=== PATIENT | male | born 1950 | race Caucasian/White ===

== ENCOUNTER 2017-04-25 16:37 | Observation (INO) ==
[2017-04-25] MEDS ORDERED: Ondansetron ODT 4 MG TAB.RAPDIS SL ONE (17:02)
[2017-04-25 17:37] LABS: BUN/Creatinine Ratio 14 (6-26); Blood Urea Nitrogen 17 mg/dL (8-26); Calcium 9.5 mg/dL (8.6-10.8); Carbon Dioxide 28 mEq/L (19-29); Chloride 102 mEq/L (98-109); Glucose 189 mg/dL (70-99); Osmolality,Calculated 303 (280-300); Potassium 3.3 mEq/L (3.5-4.5); Sodium 143 mEq/L (136-145); eGFR For African Americans > 60 (> 60); eGFR For Non-African Americans 59 (> 60)
--- NOTE | 2017-04-25 18:17 | Emergency Department Note ---
Disposition Clinical Impression: Hypoglycemia associated with type 2 diabetes mellitus Disposition: Admitted As Inpatient Condition: Fair General Adult HPI - General Chief complaint: ED Altered Mental Status Stated complaint: low blood sugar, disoriented Time Seen by Provider: 04/25/17 16:47 Source: patient, EMS Limitations: no limitations Nursing Notes Reviewed: Yes Vital Signs Reviewed: Yes - History of Present Illness HPI Narrative: Mr. Montgomery, a 66yo male, is from home by EMS for evaluation of hypoglycemia. Patient is a type II diabetic on both glipizide extended release twice a day as well as Lantus 35 units twice a day. He was experiencing diaphoresis, shakiness , slight slowing of thought and squad was called. He is a poorly controlled type II diabetic who does not check his blood glucose daily, weekly, or even monthly. Last hemoglobin A1c was 6.4. PMH: Diabetes type 2 on oral and insulin antihyperglycemic, hypertension, hyperlipidemia, morbid obesity, Pain Scale: 5 - Related Data Home Medications Medication Instructions Recorded Confirmed Fenofibrate [Lofibra] 160 mg PO DAILY 01/12/15 04/25/17 GlipiZIDE XL (24 HR) [Glucotrol XL] 10 mg PO BID 01/12/15 04/25/17 Hydrocodone/Acetaminophen [[place] 1 tab PO Q8H PRN 01/12/15 04/25/17 5-325 Tablet] Insulin Glargine,Hum.rec.anlog 35 unit SQ BID 01/12/15 04/25/17 [Lantus Solostar] Lisinopril/Hydrochlorothiazide 1 each PO BID 01/12/15 04/25/17 [Zestoretic 10-12.5 mg Tablet] Metoprolol [Lopressor] 25 mg PO BID 01/12/15 04/25/17 Pioglitazone [Actos] 45 mg PO DAILY 01/12/15 04/25/17 Ranitidine HCl [Zantac] 150 mg PO BID 01/12/15 04/25/17 Sertraline [Zoloft] 150 mg PO DAILY 01/12/15 04/25/17 Gabapentin [Neurontin] 300 mg PO HS 04/25/17 04/25/17 Previous Rx's Medication Instructions Recorded Cyclobenzaprine [Flexeril] 10 mg PO Q8H PRN #15 tablet 09/18/15 Allergies Allergy/AdvReac Type Severity Reaction Status Date / Time No Known Allergies Allergy Unverified 01/07/15 09:56 All systems ED: reviewed and negative except as stated. Constitutional: Denies: chills, weakness Cardiovascular: Denies: chest pain, palpitations Respiratory: Denies: cough, dyspnea Gastrointestinal: Denies: abdominal pain, nausea, vomiting Genitourinary: Denies: urgency, dysuria Past Medical History - Past Medical History Attestation: Yes The following information was validated with the patient. Source: patient Medical history: Reports: arthritis, diabetes, GERD, hyperlipidemia, hypertension, kidney stones Surgical history: Reports: cholecystectomy Psychiatric history: Reports: depression - Social History Smoking Status: Former smoker Smokeless Tobacco Status: Yes Alcohol use: Reports: none Drug use: Reports: none Physical Exam - General Limitations: no limitations, other (morbidly obese ) General appearance: alert, in no apparent distress - Head Head exam: atraumatic, normocephalic - Eye Eye exam: Present: normal appearance - ENT ENT exam: normal exam, normal oropharynx - Neck Neck exam: Present: normal inspection - Chest Chest inspection: Present: normal inspection - Respiratory Respiratory exam: Present: normal lung sounds bilaterally. Absent: respiratory distress - Cardiovascular Cardiovascular exam: Present: regular rate, normal rhythm - Abdominal Exam Abdominal exam: Present: soft, Non-Tender - Expanded Lower Extremity Exam Lower leg exam: Present: swelling Neurovascular/Tendon exam: Present: normal capillary refill - Neurological Exam Neurological exam: Present: alert, oriented X3 - Psychiatric Psychiatric exam: Present: normal affect, normal mood - Skin Skin exam: Present: warm, dry Course Course Narrative: Patient is a poorly controlled type II diabetic on both oral and insulin a tavern by symptoms. Blood glucose at home was in the 40s per EMS. After 2 tubes of oral glucose in route, his glucose on arrival is in the 140s to 150s. Serum hematology glucose is 189. Provided patient with complex carbs and protein so that he does not slide into hypoglycemia. Patient took his glipizide at approximately 11 AM. Repeat POC glucose is 233. I discussed the patient my concern of his glipizide extended release in the need to continue eating complex carbohydrates with finger stick glucose checks every 2 hours should he be discharged home. Patient is honest and plainly states that he would be noncompliant with this. Clinically, my concern is that he become hypoglycemic during the night. Patient's takes trazodone at night to sleep and would not be aware or awake to help the patient should he go hypoglycemic again. Patient is agreeable to admission for continued evaluation and monitoring. I discussed the patient with the admitting hospitalist, Dr. Barber, who agrees to accept the patient for continued evaluation and management. Assessment: Hypoglycemia on sulfonylurea Vital Signs Temperature 98.4 F 04/25/17 16:40 Pulse Rate 81 04/25/17 16:40 Respiratory Rate 16 04/25/17 16:40 Blood Pressure 137/113 04/25/17 16:40 O2 Sat by Pulse Oximetry 98 04/25/17 16:40 Temperature 98.4 F 04/25/17 19:38 Pulse Rate 95 04/25/17 19:38 Respiratory Rate 16 04/25/17 19:38 Blood Pressure 151/89 04/25/17 19:38 O2 Sat by Pulse Oximetry 94 04/25/17 19:38 Oxygen Delivery Oxygen Delivery Room Air Medical Decision Making - Lab Data Result diagrams: 04/25/17 17:20 Lab Results 04/25/17 Range/Units 17:20 Sodium 143 (136-145) mEq/L Potassium 3.3 L (3.5-4.5) mEq/L Chloride 102 (98-109) mEq/L Carbon Dioxide 28 (19-29) mEq/L BUN 17 (8-26) mg/dL Creatinine 1.23 (0.72-1.25) mg/dL Est GFR ( Amer) > 60 (> 60) Est GFR (Non-Af Amer) 59 L (> 60) BUN/Creatinine Ratio 14 (6-26) Glucose 189 H (70-99) mg/dL Calculated Osmolality 303 H (280-300) Calcium 9.5 (8.6-10.8) mg/dL Attestation Statement - Attestation Attestation: I examined this patient and my medical decision-making was reviewed with the Resident Physician. I agree with the documented findings, disposition and treatment plan as described except to the extent set forth below. 66-year-old male brought to the ED due to hypoglycemia. He has a history of type 2 diabetes but currently on insulin, Amaryl and glipizide. He took his usual dose of medications today later than usual. He claims he did eat a normal meal today. He was found confused and diaphoretic and when EMS arrived his glucose was 40. He was given oral glucose with improvement. He admits to noncompliance with diet and oftentimes with medications. Denies any recent illnesses. No vomiting or diarrhea. No recent change in medication Morbidly obese male in no apparent distress. He is talkative and interactive. He is complaining about the food that was provided for him. Oropharynx is clear mucous members moist. Neck is supple. Chest clear to auscultation bilaterally. Cardiac exam regular without rubs or gallops. Abdomen obese, soft, nontender. Extremities the bilateral edema. Renal function was preserved. Glucose remained stable but he was adamant he was not going to check his glucose anymore today and could not reassurance using when the heat anything further. He was on both long-acting insulin and long-acting glipizide making this plan of action Dangerous for him. He was however, in agreement for admission. Hospitalist agreed to admit with frequent Accu-Cheks and, hopefully, effective counseling
[2017-04-25] MEDS ORDERED: Potassium Chloride Elixir 20 MEQ/15 ML UDC PO ONE (20:32)
[2017-04-25] MEDS ORDERED: *HR* HYDROcodone/Acet 5/325 mg TABLET PO PRN (20:33)
--- NOTE | 2017-04-25 20:39 | Internal Med History&Physical ---
Date of Encounter: 04/25/17 Time of Encounter: 20:34 Assessment and Plan (1) Hypertension Current visit: No Status: Acute Continue home medicines. Qualifiers: Qualified Code(s): I10 - Essential (primary) hypertension (2) Hypoglycemia associated with type 2 diabetes mellitus Current visit: Yes Status: Acute Patient with type II diabetes mellitus on Lantos 35 units twice-daily and glipizide 10 mg twice daily presents with a hypoglycemic episode. His A1C is 6.4. He very rarely gets hypoglycemic episodes. No obvious source of infection. no recent increase in insulin dose or oral hypoglycemics. no change in dietary habits. In fact he has gained about 15 pounds in the past few month. Will check in blood sugar Q2 hours for now. Check A1 C. Patient does not check sugars at home. Advised to check sugars before meals. Decrease lantus dose on discharge Internal Medicine - H&P: HPI Chief complaint: low sugar History of present illness: Mr. Montgomery is a 66 year old male with history of type II diabetes mellitus on lantus 35 units twice daily and glipizide 10 milligrams twice daily presents the emergency room today with an episode of low blood sugar. Approximately 4 PM patient started becoming sweaty confused unconscious shaky. Sugars were checked by paramedics was found to be 40. He had received glucose products with normalization of blood sugar. He rarely gets low blood sugars. Last time he recalls getting hypoglycemic events were over 10 years ago. Patient denies any fever chills cough expectoration diarrhea or urinary symptoms. No recent changes in insulin dosage or oral hypoglycemic. No change in dietary habits Past Med Surg Social Fam HX - Past Medical History Medical history: arthritis, diabetes, GERD, hyperlipidemia, hypertension, kidney stones Psychiatric history: depression - Past Surgical History Surgical History: cholecystectomy - Social History Smoking Status: Former smoker Smokeless Tobacco Status: Yes Alcohol use: none Drug use: none - Family History Son Adopted: No Family Member Ethnicity: Non- Living Status: Still Living Hx Family Respiratory Disorders: Yes Sister Living Status: Still Living Internal Medicine - H&P: Meds Fenofibrate [Lofibra] 160 mg PO DAILY 01/12/15 [History] GlipiZIDE XL (24 HR) [Glucotrol XL] 10 mg PO BID 01/12/15 [History] Hydrocodone/Acetaminophen [[place] 5-325 Tablet] 1 tab PO Q8H PRN 01/12/15 [ History] Insulin Glargine,Hum.rec.anlog [Lantus Solostar] 35 unit SQ BID 01/12/15 [ History] Lisinopril/Hydrochlorothiazide [Zestoretic 10-12.5 mg Tablet] 1 each PO BID [History] Metoprolol [Lopressor] 25 mg PO BID 01/12/15 [History] Pioglitazone [Actos] 45 mg PO DAILY 01/12/15 [History] Ranitidine HCl [Zantac] 150 mg PO BID 01/12/15 [History] Sertraline [Zoloft] 150 mg PO DAILY 01/12/15 [History] Cyclobenzaprine [Flexeril] 10 mg PO Q8H PRN #15 tablet 09/18/15 [Rx] Gabapentin [Neurontin] 300 mg PO HS 04/25/17 [History] 3 Allergy/AdvReac Type Severity Reaction Status Date / Time No Known Allergies Allergy Unverified 01/07/15 09:56 All Systems PM: A 10-system review of systems was performed and is negative for pertinent findings except as documented above in the HPI. Review of systems: 10 point review of systems is negative except for HPI - Constitutional Vitals: Temp Pulse Resp BP Pulse Ox 98.4 F 95 16 151/89 94 04/25/17 19:38 04/25/17 19:38 04/25/17 19:38 04/25/17 19:38 04/25/17 19:38 Exam: Gen.: patient is alert oriented times 3 not in distress cardiac: normal S1 S2 no additional sounds are murmurs chest: clear to auscultation abdomen: soft nontender nondistended lower extremity lax calf muscles no swelling Neuro: no focal deficits Internal Med - H&P Results - Labs CBC & Chem 7: 04/25/17 17:20
[2017-04-25] MEDS ORDERED: Famotidine 20 MG TABLET PO SCH (21:00)
[2017-04-25] MEDS ORDERED: Gabapentin 300 MG CAPSULE PO SCH (21:00)
[2017-04-25] MEDS: Famotidine 20 MG TABLET PO SCH (21:18)
[2017-04-25] MEDS: *HR* Heparin 5,000 UNIT/ML VIAL SQ SCH (21:19)
[2017-04-26] MEDS: *HR* Heparin 5,000 UNIT/ML VIAL SQ SCH (05:40)
[2017-04-26 06:08] LABS: Eosinophils % 0.3 %; Hematocrit 34.5 % (37.5-50.1); Hemoglobin 11.7 g/dL (12.9-16.9); Immature Granulocytes % 1.7 % (0-4); Immature Platelets 10.9 % (1.1-6.1); Lymphocytes # 1.1 K/mcL (0.6-4.6); Lymphocytes % 31.4 %; Mean Corpuscular HGB Conc 33.9 g/dL (31.6-35.5); Mean Corpuscular Hemoglobin 30.8 pg (28.0-33.3); Mean Corpuscular Volume 90.8 fL (83.0-100.0); Mean Platelet Volume 11.6 fL (9.4-12.4); Monocytes # 0.6 K/mcL (0.0-1.3); Monocytes % 16.5 %; Neutrophils # 1.8 K/mcL (1.6-8.9); Platelet Count 141 K/mcL (140-400); Red Cell Distribution Width 13.2 % (11.5-14.5); Segmented Neutrophils % 50.1 %
[2017-04-26 06:16] LABS: Hemoglobin A1C 5.8 %
[2017-04-26 06:22] LABS: BUN/Creatinine Ratio 16 (6-26); Blood Urea Nitrogen 18 mg/dL (8-26); C-Reactive Protein 5 mg/L (Less than 5); Calcium 9.6 mg/dL (8.6-10.8); Carbon Dioxide 32 mEq/L (19-29); Chloride 106 mEq/L (98-109); Glucose 70 mg/dL (70-99); Magnesium 2.2 mg/dL (1.6-2.6); Osmolality,Calculated 300 (280-300); Potassium 3.6 mEq/L (3.5-4.5); Sodium 145 mEq/L (136-145); eGFR For African Americans > 60 (> 60); eGFR For Non-African Americans > 60 (> 60)
[2017-04-26] MEDS ORDERED: Fenofibrate 54 MG TABLET PO SCH (09:00)
[2017-04-26] MEDS ORDERED: Insulin DETEMIR 100 UNIT/ML X5UNITS SQ SCH (09:00)
[2017-04-26] MEDS: Famotidine 20 MG TABLET PO SCH (09:16)
[2017-04-26 12:07] VITALS: BP 152/85
--- NOTE | 2017-04-26 13:34 | Discharge Summary ---
Date of Encounter: 04/26/17 Time of Encounter: 10:45 - Discharge Diagnosis (1) Hypoglycemia associated with type 2 diabetes mellitus Priority: Primary Status: Acute (2) Hypertension Priority: Secondary Status: Acute Qualifiers: Hypertension type: essential hypertension Qualified Code(s): I10 - Essential (primary) hypertension - Discharge Medications Prescriptions: Insulin Glargine,Hum.rec.anlog [Lantus Solostar] 20 unit SQ DAILY #1 insuln.pen Home Medications: Fenofibrate [Lofibra] 160 mg PO DAILY 01/12/15 [History] Hydrocodone/Acetaminophen [[place] 5-325 Tablet] 1 tab PO Q8H PRN 01/12/15 [ History] Lisinopril/Hydrochlorothiazide [Zestoretic 10-12.5 mg Tablet] 1 each PO BID [History] Metoprolol [Lopressor] 25 mg PO BID 01/12/15 [History] Ranitidine HCl [Zantac] 150 mg PO BID 01/12/15 [History] Sertraline [Zoloft] 150 mg PO DAILY 01/12/15 [History] Cyclobenzaprine [Flexeril] 10 mg PO Q8H PRN #15 tablet 09/18/15 [Rx] Gabapentin [Neurontin] 300 mg PO HS 04/25/17 [History] Insulin Glargine,Hum.rec.anlog [Lantus Solostar] 20 unit SQ DAILY #1 insuln.pen 04/26/17 [Rx] Allergies/Adverse Reactions: 3 Allergy/AdvReac Type Severity Reaction Status Date / Time No Known Allergies Allergy Unverified 01/07/15 09:56 Date of admission: 04/25/17 18:47 Primary care physician: Abbie Sapp Discharging clinician: Deepti Mclain Anticipated date of discharge: 04/26/17 - Patient Status Disposition: Home, Self-Care Condition: Good Functional capacity at discharge: independent ambulation Overall status at discharge: patient is progressing back to baseline - Discharge Instructions Instructions: Insulin Glargine (Injection), Diabetic Hypoglycemia (DC), Diabetes Mellitus Type 2 in Adults (DC), Chronic Hypertension (DC) Follow Up With: Reed Doyle DO [Primary Care Provider] - 05/02/17 1:30 pm () Additional Instructions: Take Lantus 20 units subcutaneous at bedtime if blood sugars greater than 150. Please check your blood sugar first thing in the morning when you wake up and 3 times a day before meals. If your blood sugars remain greater than 200 consistently, call your primary care doctor to make adjustments. If your blood sugars go greater than 400 please come to the ER. - Diet and Activity Activity: increase activity as tolerated Diet: diabetic diet, low salt diet Hospital course: Mr. Montgomery is a 66 year old male patient with a history of diabetes mellitus, hypertension who presented to the ER with complaints of increased confusion and excessive sweating. His blood sugars have been checked at his home and was found to be in the 40s. Patient takes Lantus 35 units twice daily. He denies taking any extra doses of insulin. Patient is also on Actos and glipizide. He has not been checking his blood sugars regularly at home as he has been on the same amount of insulin for at least 2 years now. His blood sugars were closely monitored and his insulin was held. His blood sugars have since improved. He has not received any insulin here so far and his blood sugars are ranging between 70 to and 200 this morning. His A1c level was 5.8%. His symptoms were most likely due to his insulin requirements decreasing given his well controlled blood sugars. As such I recommend stopping his oral anti-glycemic agents and also decreasing his Lantus dosage. At this time I would recommend that he take 20 units of Lantus once a day and follow his blood sugars closely. He will follow up with his primary care provider for further management. I called his primary care provider and explained the patient's condition and the plan that remained. He is in agreement with current plan and will follow up with him as outpatient. Patient is advised to call his primary care provider if his blood sugars are consistently greater than 200 to make adjustments to his insulin regimen. - Time Spent with Patient Total time spent providing and/or coordinating discharge services: Greater than 30 minutes (35 min) - Constitutional Vitals: Temp Pulse Resp BP Pulse Ox 98.3 F 81 16 152/85 93 04/26/17 12:06 04/26/17 12:06 04/26/17 12:06 04/26/17 12:06 04/26/17 12:06 General appearance: Present: cooperative, A&O X 3, answers questions appropriately - Neck Neck exam general surgery: Present: supple, trachea midline. Absent: lymphadenopathy - Respiratory Respiratory exam: Present: CTAB. Absent: accessory muscle use, rales, rhonchi, wheezes - Cardiovascular Cardiovascular exam: Present: RRR, +S1, +S2. Absent: diastolic murmur, gallop, rubs, systolic murmur - GI/Abdominal GI/Abdominal exam: Present: normal bowel sounds, soft, no peritoneal signs. Absent: distended, tenderness - Extremities Exam Extremities exam: Present: warm, radial pulses palpable and symmetrical. Absent : calf tenderness, cyanotic, pedal edema - Neurological Exam Neurological exam: Present: alert, oriented X3, no focal deficits. Absent: facial droop, speech deficit - Skin Skin exam: Present: dry, intact
== END 2017-04-26 14:45 | disposition home or self-care (01) ==
LOC: 3BNU 16:37 → EMEROO 16:37 → SUATTDRO 18:47 → 3BNU 19:21
PROVIDERS: ADMIT Hospitalist; ATTEND Internal Medicine

== ENCOUNTER 2019-11-16 14:28 | Inpatient (IN) ==
[2019-11-16] MEDS ORDERED: 0.9 % Sodium Chloride 1,000 ML IVC ONE (14:48)
[2019-11-16 14:57] LABS: Hemoglobin 13.2 g/dL (12.9-16.9)
[2019-11-16 14:59] LABS: Hematocrit 39.6 % (37.5-50.1); Immature Granulocytes % 1.2 % (0-4); Immature Platelets 17.4 % (1.1-6.1); Lymphocytes # 0.6 K/mcL (0.6-4.6); Lymphocytes % 8.1 %; Mean Corpuscular HGB Conc 33.3 g/dL (31.6-35.5); Mean Corpuscular Hemoglobin 30.1 pg (28.0-33.3); Mean Corpuscular Volume 90.4 fL (83.0-100.0); Mean Platelet Volume 13.2 fL (9.4-12.4); Monocytes # 0.1 K/mcL (0.0-1.3); Monocytes % 1.5 %; Neutrophils # 6.5 K/mcL (1.6-8.9); Platelet Count 156 K/mcL (140-400); Red Blood Count 4.38 M/mcL (4.19-5.50); Red Cell Distribution Width 14.1 % (11.5-14.5); Segmented Neutrophils % 89.2 %; White Blood Count 7.3 K/mcL (4.3-11.1)
[2019-11-16 15:18] LABS: BUN/Creatinine Ratio 12 (6-26); Blood Urea Nitrogen 23 mg/dL (8-23); Calcium 9.9 mg/dL (8.6-10.3); Carbon Dioxide 24 mEq/L (23-29); Chloride 101 mEq/L (98-107); Glucose 325 mg/dL (70-105); Osmolality,Calculated 302 (280-300); Potassium 3.8 mEq/L (3.5-5.1); Sodium 138 mEq/L (136-145); Troponin I < 0.03 ng/mL (< 0.04); eGFR For African Americans 42 (> 60); eGFR For Non-African Americans 35 (> 60)
[2019-11-16] MEDS ORDERED: Ondansetron 4 MG/2 ML VIAL IVP ONE (16:49)
[2019-11-16] MEDS ORDERED: 0.9 % Sodium Chloride 1,000 ML ONE (17:04)
[2019-11-16] MEDS ORDERED: Aspirin 325 MG TABLET PO ONE (18:10)
[2019-11-16] MEDS ORDERED: *HR* OxyCODONE Immed Rel 5 MG TABLET PO PRN (19:21)
[2019-11-16] MEDS ORDERED: Naloxone 0.4 MG/ML INJ IVP PRN ×2 (19:21→19:44)
[2019-11-16] MEDS ORDERED: Nitroglycerin 0.4 MG TAB.SUBL SL PRN (20:51)
[2019-11-16] MEDS: Ringers Solution, Lactated 1,000 ML IVC SCH (20:53)
[2019-11-16] MEDS ORDERED: *HR* Heparin 5,000 UNIT/ML VIAL SQ SCH (21:00)
[2019-11-17] MEDS: Insulin LISPRO 300 UNITS/3 ML VIAL SQ SCH ×5 (01:01→20:40)
[2019-11-17 02:24] LABS: Hematocrit 32.5 % (37.5-50.1); Lymphocytes # 0.9 K/mcL (0.6-4.6); Lymphocytes % 11.3 %; Mean Corpuscular HGB Conc 32.9 g/dL (31.6-35.5); Mean Corpuscular Hemoglobin 29.5 pg (28.0-33.3); Mean Corpuscular Volume 89.5 fL (83.0-100.0); Mean Platelet Volume 12.4 fL (9.4-12.4); Monocytes # 0.5 K/mcL (0.0-1.3); Monocytes % 6.4 %; Neutrophils # 6.8 K/mcL (1.6-8.9); Platelet Count 141 K/mcL (140-400); Red Blood Count 3.63 M/mcL (4.19-5.50); Red Cell Distribution Width 14.2 % (11.5-14.5); Segmented Neutrophils % 81.3 %; White Blood Count 8.3 K/mcL (4.3-11.1)
[2019-11-17 02:29] LABS: Hemoglobin 10.7 g/dL (12.9-16.9)
[2019-11-17 02:38] LABS: Calcium 8.9 mg/dL (8.6-10.3); Chol/HDL Ratio 3.7 (0-4.9); Potassium 3.5 mEq/L (3.5-5.1)
[2019-11-17 02:51] LABS: Thyroid Stimulating Hormone 1.552 mcIU/mL (0.340-5.600)
[2019-11-17 04:57] LABS: Estimated Average Glucose 169 mg/dl
[2019-11-17] MEDS: Aspirin 81 MG TAB.CHEW PO SCH (08:35)
[2019-11-17] MEDS: Fenofibrate 54 MG TABLET PO SCH (08:35)
[2019-11-17] MEDS: Ringers Solution, Lactated 1,000 ML IVC SCH ×2 (12:33→20:39)
[2019-11-17] MEDS: Acetaminophen 325 MG TABLET PO PRN (16:01)
[2019-11-18] MEDS: Insulin LISPRO 300 UNITS/3 ML VIAL SQ SCH ×3 (05:23→17:19)
[2019-11-18] MEDS ORDERED: Regadenoson 0.4 MG/5 ML SYRINGE IVP ONE (06:35)
[2019-11-18] MEDS: Aspirin 81 MG TAB.CHEW PO SCH (08:18)
[2019-11-18] MEDS: Fenofibrate 54 MG TABLET PO SCH (08:18)
[2019-11-18] MEDS: Acetaminophen 325 MG TABLET PO PRN (08:22)
[2019-11-18 09:06] LABS: Basophils % 0.3 %; Eosinophils % 0.3 %; Hematocrit 29.5 % (37.5-50.1); Hemoglobin 9.7 g/dL (12.9-16.9); Immature Granulocytes % 1.7 % (0-4); Lymphocytes # 0.8 K/mcL (0.6-4.6); Lymphocytes % 27.8 %; Mean Corpuscular HGB Conc 32.9 g/dL (31.6-35.5); Mean Corpuscular Hemoglobin 30.1 pg (28.0-33.3); Mean Corpuscular Volume 91.6 fL (83.0-100.0); Mean Platelet Volume 12.8 fL (9.4-12.4); Monocytes # 0.2 K/mcL (0.0-1.3); Monocytes % 8.3 %; Neutrophils # 1.8 K/mcL (1.6-8.9); Platelet Count 103 K/mcL (140-400); Red Blood Count 3.22 M/mcL (4.19-5.50); Red Cell Distribution Width 13.7 % (11.5-14.5); Segmented Neutrophils % 61.6 %
[2019-11-18 09:10] LABS: White Blood Count 2.9 K/mcL (4.3-11.1)
[2019-11-18 09:25] LABS: BUN/Creatinine Ratio 21 (6-26); Blood Urea Nitrogen 20 mg/dL (8-23); Calcium 8.5 mg/dL (8.6-10.3); Carbon Dioxide 33 mEq/L (23-29); Chloride 106 mEq/L (98-107); Glucose 141 mg/dL (70-105); Magnesium 1.9 mg/dL (1.6-2.6); Osmolality,Calculated 297 (280-300); Potassium 3.5 mEq/L (3.5-5.1); Sodium 141 mEq/L (136-145); eGFR For African Americans > 60 (> 60); eGFR For Non-African Americans > 60 (> 60)
[2019-11-18] MEDS: Ringers Solution, Lactated 1,000 ML IVC SCH (11:21)
[2019-11-18] MEDS ORDERED: Magnesium Oxide 400 MG TABLET PO ONE (18:37)
[2019-11-18] MEDS ORDERED: Potassium Chloride Elixir 20 MEQ/15 ML UDC PO ONE (18:38)
[2019-11-19] MEDS: Insulin LISPRO 300 UNITS/3 ML VIAL SQ SCH ×5 (01:03→20:01)
[2019-11-19] MEDS ORDERED: Regadenoson 0.4 MG/5 ML SYRINGE IVP ONE (06:06)
[2019-11-19 06:12] LABS: Eosinophils % 0.4 %; Hemoglobin 10.2 g/dL (12.9-16.9); Immature Granulocytes % 1.6 % (0-4); Lymphocytes % 30.3 %
[2019-11-19 06:14] LABS: Hematocrit 29.7 % (37.5-50.1); Immature Platelets 8.6 % (1.1-6.1); Lymphocytes # 0.7 K/mcL (0.6-4.6); Mean Corpuscular HGB Conc 34.3 g/dL (31.6-35.5); Mean Corpuscular Hemoglobin 30.4 pg (28.0-33.3); Mean Corpuscular Volume 88.7 fL (83.0-100.0); Mean Platelet Volume 13.1 fL (9.4-12.4); Monocytes % 10.2 %; Neutrophils # 1.4 K/mcL (1.6-8.9); Platelet Count 101 K/mcL (140-400); Red Blood Count 3.35 M/mcL (4.19-5.50); Red Cell Distribution Width 13.7 % (11.5-14.5); Segmented Neutrophils % 57.5 %; White Blood Count 2.4 K/mcL (4.3-11.1)
[2019-11-19 06:15] LABS: Monocytes # 0.2 K/mcL (0.0-1.3)
[2019-11-19] MEDS: Acetaminophen 325 MG TABLET PO PRN (06:26)
[2019-11-19 06:51] LABS: BUN/Creatinine Ratio 17 (6-26); Blood Urea Nitrogen 15 mg/dL (8-23); Calcium 8.9 mg/dL (8.6-10.3); Carbon Dioxide 30 mEq/L (23-29); Chloride 103 mEq/L (98-107); Glucose 195 mg/dL (70-105); Magnesium 1.9 mg/dL (1.6-2.6); Osmolality,Calculated 296 (280-300); Potassium 3.4 mEq/L (3.5-5.1); Sodium 140 mEq/L (136-145); eGFR For African Americans > 60 (> 60); eGFR For Non-African Americans > 60 (> 60)
[2019-11-19] MEDS ORDERED: Potassium Chloride 40 MEQ, Lidocaine 1% 2 ML in 0.9 % Sodium Chloride 500 ML IVPB ONE (07:05)
[2019-11-19] MEDS ORDERED: Potassium Phosphate 44 MEQ in 0.9 % Sodium Chloride 250 ML IVPB ONE (08:21)
[2019-11-19] MEDS: Aspirin 81 MG TAB.CHEW PO SCH (09:09)
[2019-11-19] MEDS: Fenofibrate 54 MG TABLET PO SCH (09:09)
[2019-11-19] MEDS ORDERED: lisinopriL 10 MG TABLET PO SCH (12:15)
[2019-11-19] MEDS ORDERED: Ondansetron 4 MG/2 ML VIAL ONE (14:31)
[2019-11-19] MEDS ORDERED: 0.9 % Sodium Chloride 3,000 ML ONE (14:47)
[2019-11-19] MEDS ORDERED: Ondansetron 4 MG/2 ML VIAL IVP ONE (15:11)
[2019-11-19 15:27] LABS: Hematocrit 39.7 % (37.5-50.1); Hemoglobin 13.2 g/dL (12.9-16.9); Mean Corpuscular HGB Conc 33.2 g/dL (31.6-35.5); Mean Corpuscular Hemoglobin 30.1 pg (28.0-33.3); Mean Corpuscular Volume 90.4 fL (83.0-100.0); Mean Platelet Volume 11.9 fL (9.4-12.4); Platelet Count 115 K/mcL (140-400); Red Blood Count 4.39 M/mcL (4.19-5.50); Red Cell Distribution Width 13.6 % (11.5-14.5); White Blood Count 3.8 K/mcL (4.3-11.1)
[2019-11-19 15:46] LABS: BUN/Creatinine Ratio 11 (6-26); Blood Urea Nitrogen 17 mg/dL (8-23); Calcium 8.3 mg/dL (8.6-10.3); Carbon Dioxide 24 mEq/L (23-29); Chloride 105 mEq/L (98-107); Glucose 209 mg/dL (70-105); Magnesium 1.8 mg/dL (1.6-2.6); Osmolality,Calculated 296 (280-300); Potassium 3.3 mEq/L (3.5-5.1); Sodium 139 mEq/L (136-145); Troponin I < 0.03 ng/mL (< 0.04); eGFR For African Americans 54 (> 60); eGFR For Non-African Americans 44 (> 60)
[2019-11-19] MEDS: Promethazine 25 MG in 0.9 % Sodium Chloride 50 ML IVPB ONE ×2 (15:55→17:34)
[2019-11-19 18:43] LABS: Basophils % 0.2 %; Hematocrit 36.5 % (37.5-50.1); Hemoglobin 12.2 g/dL (12.9-16.9); Immature Granulocytes % 1.7 % (0-4); Lymphocytes # 0.7 K/mcL (0.6-4.6); Lymphocytes % 10.2 %; Mean Corpuscular HGB Conc 33.4 g/dL (31.6-35.5); Mean Corpuscular Hemoglobin 29.9 pg (28.0-33.3); Mean Corpuscular Volume 89.5 fL (83.0-100.0); Mean Platelet Volume 12.3 fL (9.4-12.4); Monocytes # 0.8 K/mcL (0.0-1.3); Monocytes % 11.9 %; Neutrophils # 5.1 K/mcL (1.6-8.9); Platelet Count 119 K/mcL (140-400); Red Blood Count 4.08 M/mcL (4.19-5.50); Red Cell Distribution Width 13.8 % (11.5-14.5); White Blood Count 6.7 K/mcL (4.3-11.1)
[2019-11-19 18:59] LABS: Calcium 8.8 mg/dL (8.6-10.3); Potassium 3.4 mEq/L (3.5-5.1)
[2019-11-20 07:29] LABS: Basophils % 0.3 %; Eosinophils % 0.3 %; Red Cell Distribution Width 13.7 % (11.5-14.5)
[2019-11-20 07:31] LABS: Immature Granulocytes % 0.9 % (0-4); Immature Platelets 16.6 % (1.1-6.1); Lymphocytes # 0.8 K/mcL (0.6-4.6); Lymphocytes % 24.7 %; Mean Corpuscular HGB Conc 33.3 g/dL (31.6-35.5); Mean Corpuscular Hemoglobin 29.9 pg (28.0-33.3); Mean Corpuscular Volume 89.8 fL (83.0-100.0); Mean Platelet Volume 13.1 fL (9.4-12.4); Monocytes # 0.3 K/mcL (0.0-1.3); Monocytes % 8.9 %; Neutrophils # 2.1 K/mcL (1.6-8.9); Red Blood Count 3.34 M/mcL (4.19-5.50); Segmented Neutrophils % 64.9 %; White Blood Count 3.2 K/mcL (4.3-11.1)
[2019-11-20] MEDS: Fenofibrate 54 MG TABLET PO SCH (08:29)
[2019-11-20] MEDS: Insulin LISPRO 300 UNITS/3 ML VIAL SQ SCH ×4 (08:31→20:39)
[2019-11-20] MEDS: Aspirin 81 MG TAB.CHEW PO SCH (08:31)
[2019-11-20 08:49] LABS: Calcium 8.7 mg/dL (8.6-10.3); Potassium 3.5 mEq/L (3.5-5.1)
[2019-11-20 09:31] LABS: Platelet Count 92 K/mcL (140-400)
[2019-11-20] MEDS ORDERED: Ringers Solution, Lactated 500 ML IVC ONE (10:32)
[2019-11-21] MEDS: Aspirin 81 MG TAB.CHEW PO SCH (08:06)
[2019-11-21] MEDS: Fenofibrate 54 MG TABLET PO SCH (08:06)
[2019-11-21] MEDS: Insulin LISPRO 300 UNITS/3 ML VIAL SQ SCH ×2 (08:07→12:10)
[2019-11-21 10:28] LABS: Basophils % 0.4 %; Hematocrit 29.7 % (37.5-50.1); Hemoglobin 10.4 g/dL (12.9-16.9); Immature Granulocytes % 1.2 % (0-4); Lymphocytes # 0.8 K/mcL (0.6-4.6); Mean Corpuscular Hemoglobin 30.7 pg (28.0-33.3); Mean Corpuscular Volume 87.6 fL (83.0-100.0); Mean Platelet Volume 12.2 fL (9.4-12.4); Monocytes # 0.2 K/mcL (0.0-1.3); Neutrophils # 1.5 K/mcL (1.6-8.9); Platelet Count 113 K/mcL (140-400); Red Blood Count 3.39 M/mcL (4.19-5.50); Red Cell Distribution Width 13.5 % (11.5-14.5); Segmented Neutrophils % 59.4 %; White Blood Count 2.6 K/mcL (4.3-11.1)
[2019-11-21 10:39] LABS: BUN/Creatinine Ratio 17 (6-26); Blood Urea Nitrogen 19 mg/dL (8-23); Calcium 9.3 mg/dL (8.6-10.3); Carbon Dioxide 25 mEq/L (23-29); Chloride 102 mEq/L (98-107); Glucose 312 mg/dL (70-105); Osmolality,Calculated 294 (280-300); Potassium 3.8 mEq/L (3.5-5.1); Sodium 135 mEq/L (136-145); eGFR For African Americans > 60 (> 60); eGFR For Non-African Americans > 60 (> 60)
[2019-11-21 11:18] VITALS: BP 163/85
== END 2019-11-21 14:40 | disposition home health service (06) | DRG 683 ==
LOC: EMEROOARM 14:28 → 3ANU 14:28 → 2NNU 18:22 → SUATTDRO 11-17 16:04 → 3BNU 11-19 18:40 → UNDODISIN 11-21 13:33
PROVIDERS: ADMIT Pharmacist; ATTEND Internal Medicine